=== PATIENT | female | born 1990 | race American Indian/Alaskan Native ===

== ENCOUNTER 2019-09-29 14:56 | Emergency (ER) | payer BC, MEDICAID ==
[2019-09-29] MEDS ORDERED: LORazepam 2 MG/ML VIAL ONE (15:28)
[2019-09-29] MEDS ORDERED: SODIUM CHLORIDE 0.9% 1000 ML 1,000 ML IV ONE ×3 (15:30→22:15)
[2019-09-29] MEDS ORDERED: levETIRAcetam 1000 MG/NS 0.75% 1,000 MG/100 ML BAG IV ONE (15:30)
[2019-09-29] MEDS ORDERED: LORazepam 2 MG/ML VIAL IV ONE (15:30)
[2019-09-29 16:03] LABS: Bilirubin,Urine NEG (Negative); Blood,Urine NEG (Negative); Color,Urine Yellow (Yellow); Mucus,Urine FEW /HPF; Urobilinogen,Urine < 2.0 mg/dL (<2.0)
[2019-09-29 16:09] LABS: Amphetamine Screen,Urine PRESUMPTIVE NEGATIVE; Benzodiazepines Screen,Urine PRESUMPTIVE NEGATIVE; Cocaine Screen,Urine PRESUMPTIVE NEGATIVE; Methadone Screen,Urine PRESUMPTIVE NEGATIVE; Opiate Screen,Urine PRESUMPTIVE NEGATIVE
[2019-09-29 16:11] LABS: HCG Qualitative,Urine Negative (Negative)
[2019-09-29 16:22] LABS: Cannabinoid Screen,Urine PRESUMPTIVE POSITIVE
[2019-09-29 16:38] LABS: Basophils % (Auto) 0.3 % (0.0-1.8); Eosinophils % (Auto) 0.3 % (0.0-4.3); Hematocrit 44.5 % (30.3-42.9); Hemoglobin 14.5 gm/dl (10.1-14.3); Lymphocytes # (Auto) 0.8 K/mm3 (1.2-5.4); Lymphocytes % (Auto) 12.1 % (13.4-35.0); Mean Corpuscular HGB Conc 33 % (30-34); Mean Corpuscular Volume 101 fl (79-97); Monocytes # (Auto) 0.4 K/mm3 (0.0-0.8); Monocytes % (Auto) 5.3 % (0.0-7.3); Platelet Count 198 K/mm3 (140-440); Red Blood Count 4.42 M/mm3 (3.65-5.03); Red Cell Distribution Width 13.3 % (13.2-15.2)
[2019-09-29 16:59] LABS: Alanine Aminotransferase 27 units/L (7-56); Albumin 4.3 g/dL (3.9-5); BUN/Creatinine Ratio 14; Blood Urea Nitrogen 14 mg/dL (7-17); Calcium 9.8 mg/dL (8.4-10.2); Hemolysis Index 27
--- NOTE | 2019-09-29 17:55 | Emergency Department Report ---
HPI - General Chief Complaint: Seizure Time Seen by Provider: 09/29/19 15:30 - HPI HPI: 29-year-old -[place] female presents to the emergency department after having a witnessed seizure while riding in a car with someone else prior to presentation. EMS was called and the patient arrived to the emergency department awake and alert and oriented. She only complained of feeling fatigued. She denied any past medical history including any previous history of seizures or a seizure disorder. Shortly after arrival to the emergency department the patient had another witnessed seizure. She was given 2 mg of Ativan, 1 g of Keppra, and the patient had a postictal period. ED Past Medical Hx - Past Medical History Previous Medical History?: No - Surgical History Past Surgical History?: No - Social History Smoking Status: Unknown if ever smoked Substance Use Type: None - Medications Home Medications: Home Medications Medication Instructions Recorded Confirmed Last Taken Type levETIRAcetam [Keppra TAB] 500 mg PO BID #30 tablet 09/29/19 Unknown Rx ED Review of Systems ROS: Stated complaint: SEIZURE Other details as noted in HPI Comment: All other systems reviewed and negative Constitutional: denies: chills, fever Eyes: denies: eye pain, vision change ENT: denies: ear pain, throat pain Respiratory: denies: cough, shortness of breath Cardiovascular: denies: chest pain, palpitations Gastrointestinal: denies: abdominal pain, vomiting Genitourinary: denies: dysuria, discharge Musculoskeletal: denies: back pain, arthralgia Skin: denies: rash, lesions Neurological: other (seizure). denies: weakness Physical Exam - Physical Exam Vital Signs: Vital Signs 09/29/19 09/29/19 16:28 16:37 Temperature 97.8 F Pulse Rate 93 H Respiratory 16 24 Rate Blood Pressure 93/49 [Right] O2 Sat by Pulse 100 99 Oximetry Physical Exam: GENERAL: Patient is postictal and unresponsive. HENT: Normocephalic. Atraumatic. Patient has moist mucous membranes. EYES: Pupils equal reactive to light bilaterally. NECK: Supple. Trachea is midline. CHEST/LUNGS: Clear to auscultation. There is no respiratory distress noted. HEART/CARDIOVASCULAR: Regular. There is no tachycardia. There is no murmur. ABDOMEN: Abdomen is soft, nontender. Patient has normal bowel sounds. There is no abdominal distention. SKIN: Skin is warm and dry. NEURO: Patient is postictal and unresponsive. She was seen waking up but agitated and not following commands or redirection. MUSCULOSKELETAL: There is no tenderness or deformity. There is no limitation range of motion. There is no evidence of acute injury. ED Course Vital Signs 09/29/19 09/29/19 16:28 16:37 Temperature 97.8 F Pulse Rate 93 H Respiratory 16 24 Rate Blood Pressure 93/49 [Right] O2 Sat by Pulse 100 99 Oximetry - Reevaluation(s) Reevaluation #1: 09/30/19 07:15 The patient was reevaluated after her witnessed seizure. Patient is verbal without any slurred speech. She is fatigued but is arousable. She is oriented. No focal or lateralizing deficits. Cranial nerves II through XII grossly intact. ED Medical Decision Making - Lab Data Result diagrams: 09/29/19 16:21 09/29/19 20:47 - Radiology Data Radiology results: report reviewed CT head/brain wo con INDICATION / CLINICAL INFORMATION: 29 years Female; new onset seizures, multiple seizures. TECHNIQUE: Routine CT head without contrast. All CT scans at this location are performed using CT dose reduction for ALARA by means of automated exposure control. COMPARISON: None. FINDINGS: BRAIN / INTRACRANIAL CONTENTS: There are small foci of calcification projected within the basal ganglia. Otherwise, the brain appears to demonstrate appropriate attenuation. The ventricular system is within normal limits in size and configuration. There is no CT evidence of acute intracranial hemorrhage or significant mass effect. ORBITS: No significant abnormality of visualized orbits. SINUSES / MASTOIDS: There is near complete opacification of the left frontal sinus at. This mild scattered mucosal thickening within the visualized ethmoid air cells. CRANIOCERVICAL JUNCTION: No significant abnormality. ADDITIONAL FINDINGS: None. IMPRESSION: 1. There is no CT evidence of acute intracranial process. - Medical Decision Making This patient initially came in after having a new onset seizure at home. She was seen awake and alert and oriented by the initial nurse, Doris. However, shortly after presentation, the patient had another witnessed seizure in the emergency department. This was witnessed by myself as well and this was my initial examination of the patient. She was given 2 mg of Ativan and a gram of Keppra. The seizure stopped and the patient was postictal. She was reevaluated again multiple times throughout ED course but I did another physical examinatio n about one hour after the seizure and the patient is improved. She is still sleepy and/or fatigued, possibly from being postictal, but more likely from the Ativan given. At this point she is oriented and did not have any focal deficits in her cranial nerves were intact. Patient's labs were mostly unremarkable except for a bicarbonate of 8. This is most likely a combination of dehydration and blowing off CO2 from some hyperventilation around the time of her seizures and postictal states. She was given a total of 3 L of IV fluid resuscitation. This case was signed out to my colleague, Dr. Boo, to follow the CT scan results and repeat the metabolic panel. In reviewing the rest of the chart, the CT scan of the head did not show any bleed, shift, mass, ischemia, or any other acute process. Repeat metabolic panel shows the bicarbonate has gone up to 17. The patient was reevaluated and has remained awake and alert without any further seizure-like activity. She was discharged home on Keppra and with a referral for neurology. - Differential Diagnosis epilepsy, malignancy, hydrocephalus, substance abuse Critical Care Time: No Critical care attestation.: If time is entered above; I have spent that time in minutes in the direct care of this critically ill patient, excluding procedure time. ED Disposition Clinical Impression: Seizure Disposition: DC-01 TO HOME OR SELFCARE Is pt being admited?: No Condition: Stable Instructions: Recurrent Seizures Adult (ED) Additional Instructions: return if worse Prescriptions: levETIRAcetam [Keppra TAB] 500 mg PO BID #30 tablet Referrals: PAPA BERTRAND MD [Referring] - 3-5 Days PRIMARY CARE, [Primary Care Provider] - 3-5 Days Forms: Work/School Release Form(ED)
--- NOTE | 2019-09-29 19:56 | Cat Scan Report ---
CT head/brain wo con INDICATION / CLINICAL INFORMATION: 29 years Female; new onset seizures, multiple seizures. TECHNIQUE: Routine CT head without contrast. All CT scans at this location are performed using CT dos e reduction for ALARA by means of automated exposure control. COMPARISON: None. FINDINGS: BRAIN / INTRACRANIAL CONTENTS: There are small foci of calcification projected within the basal gangl ia. Otherwise, the brain appears to demonstrate appropriate attenuation. The ventricular system is wi thin normal limits in size and configuration. There is no CT evidence of acute intracranial hemorrhag e or significant mass effect. ORBITS: No significant abnormality of visualized orbits. SINUSES / MASTOIDS: There is near complete opacification of the left frontal sinus at. This mild scat tered mucosal thickening within the visualized ethmoid air cells. CRANIOCERVICAL JUNCTION: No significant abnormality. ADDITIONAL FINDINGS: None. IMPRESSION: 1. There is no CT evidence of acute intracranial process. Signer Name: Velasquez Fernandez MD Signed: 09/29/2019 7:52 PM Workstation Name: [id number]
[2019-09-29 21:14] LABS: BUN/Creatinine Ratio 14; Blood Urea Nitrogen 10 mg/dL (7-17); Hemolysis Index 4
[2019-09-29] MEDS ORDERED: SODIUM CHLORIDE 0.9% 1000 ML 1,000 ML ONE (22:18)
[2019-09-29 23:05] VITALS: BP 100/52
== END 2019-09-29 23:29 | disposition home or self-care (01) ==
LOC: ED 14:56
DX: R56.9 Unspecified convulsions (principal); R53.83 Other fatigue; Z79.899 Other long term (current) drug therapy
CPT/HCPCS: 36415; 70450; 80048; 80053; 80307; 81001; 81025; 84443; 85025; 93005; 93010; 96365; 96375; 99285; J1953; J2060; J7030; 80320; G0480